=== PATIENT | female | born 1950 | race African-American/Black ===

== ENCOUNTER 2016-10-15 08:27 | Emergency (ER) | payer BC ==
[2016-10-15 08:40] VITALS: BMI 31.1
--- NOTE | 2016-10-15 08:46 | DR.CP ---
HPI - Time Seen Time seen: 08:40 - PCP Primary Care Physician: Nereyda DELVALLE - HPI Comment HPI Comment: PATIENT DENIES CAD OR HYPERLIPIDEMIA. TAKE MED FOR HYPERTENSION. NO COLD, COUGH OR CONGESTION. - Complaint Chief Complaint Doctor Comments: SUBSTERNAL LOWER CHEST PAIN AND EPIGASTRIC PAIN WITH SOB TIMES ONE WEEK.NO RADIATIONOF PAIN WHICH IS INTERMITTENT. SYMTOMS AT REST. NOT IMPROVING. Chief Complaint:: PT. C/O INTERMITTENT CHEST PAIN X 1 WEEK WHICH HAS WORSENED. PT. C/O TIGHTNESS TO CHEST AND ACROSS UPPER PART OF STOMACH WELL SOB AT REST AND ON EXERTION. PT. DENIES RADIATING PAIN. - Reviewed Nurses Notes Review: Yes - Source History Provided: Patient - Mode of Arrival Mode of Arrival: Ambulatory - Timing Onset of Chief Complaint: 10/10/16 Came on: Suddenly Pain: Present Now - Duration Duration: Intermittent Duration: Days - Location Chest Pain Radiation Location: None - Context Onset: At rest Cardiac Risk Factors: None PE Risk Factors: None History of: None Prehospital Care: None - Quality Quality: Sharp - Severity Severity: None - Modifying Factors Worsens: Nothing Impoves: Nothing - Associated Signs and Symptoms Associated Signs and Symptoms: Shortness of Breath PMH - PMH Past Medical History: Yes Past Medical History: Hypertension Past Surgical History: Yes Surgical History: , Cholecystectomy - Family History History of Family Medical Conditions: No - Social History Does patient currently use any type of tobacco product: Yes Have you used tobacco products in the last 12 months: Yes Type of Tobacco Use: Cigarettes Does any household member use tobacco: No Alcohol Use: None Do you use any recreational Drugs:: No Lives With: Spouse Lives Where: Home - infectious screening In the last 2 months have you had wt loss of >10#?: NO Have you had fever, night sweats or hemotysis?: No Have you traveled outside the country in the last 6 months?: No Isolation: Standard ROS - Review of Systems Constitutional: No Symptoms Reported Eyes: No Symptoms Reported ENTM: No Symptoms Reported Respiratoy: Short of Breath Cardiovascular: Chest Pain Genitourinary: No Symptoms Reported Neurological: No Symptoms Reported Musculoskeletal: No Symptoms Reported Integumentary: No Symptoms Reported Hematologic/Lymphatic: No Symptoms Reported Endocrine: No Symptoms Reported All Other Systems: Reviewed and Negative PE - Vitals Vitals: Temperature 97.2 F Pulse Rate [Right Brachial] 53 Pulse Rate 66 Respiratory Rate 16 Blood Pressure [Right Arm] 109/55 Blood Pressure 139/68 O2 Sat by Pulse Oximetry 100 - General Limitations: No Limitations General Appearance: Alert - Head Head Exam: Normal Inspection - Eyes Eye exam: Normal Appearance - ENT ENT Exam: Normal External Ear Exam - Chest Chest Inspection: Symmetric Chest Wall Rise - Respiratory Respiratory Exam: Normal Lung Sounds Bilat Respiratory Exam: Bilateral Clear to Auscultation - Cardiovascular Cardiovascular Exam: Regular Rate, Normal Rhythm, Normal Heart Sounds Pulse: Normal, Radial, Femoral Edema: Normal - Abdominal Exam Abdominal Exam: Normal Bowel Sounds, Soft. negative: Tenderness - Extremities Extremities Exam: Normal Inspection - Back Back Exam: Normal Inspection - Neurologic Neurological Exam: Alert, Oriented X3 - Psychiatric Psychiatric Exam: Normal Affect, Normal Mood - Skin Skin Exam: Normal Color MDM - Additional Information Additional Information Obtained From: Family - Differential Diagnosis Differential Diagnosis: Angina, Chest Wall Pain, Costochondritis, Esophageal Reflux/Spasm, Gastritis, Myocardial Infarction, Pleuritis, Pneumonia, Pneumothorax, Pulmonary Embolus Course - Treatment Treatment: SEE ORDERS - Education/Counseling Education/Counseling: Patient, Family, Education Educated On: Diagnosis ROR - Labs Reviewed Laboratory Results Reviewed?: Yes Result Diagrams: 10/15/16 09:07 10/15/16 09:07 Laboratory: WBC 10.7 X10^3/uL (3.6-10.0) H 10/15/16 09:07 RBC 4.81 X10^6/uL (3.5-5.4) 10/15/16 09:07 Hgb 13.5 g/dL (12.0-16.0) 10/15/16 09:07 Hct 39.4 % (36.0-47.0) 10/15/16 09:07 MCV 81.8 fL (80.0-100.0) 10/15/16 09:07 MCH 28.1 pg (27.0-34.0) 10/15/16 09:07 MCHC 34.3 g/dL (33.0-35.0) 10/15/16 09:07 RDW 15.3 % (11.6-16.5) 10/15/16 09:07 Plt Count 368 X10^3/uL (150.0-450.0) 10/15/16 09:07 MPV 7.6 fL (7.4-11.0) 10/15/16 09:07 Neut % 62.3 % (42.0-75.0) 10/15/16 09:07 Lymph % 29.3 % (21.0-51.0) 10/15/16 09:07 [place] % 5.4 % (0.0-13.0) 10/15/16 09:07 Eos % 1.6 % (0.9-2.9) 10/15/16 09:07 Baso % 1.4 % (0.2-1.0) H 10/15/16 09:07 Neut # 6.7 x10^3/uL (2.2-4.8) H 10/15/16 09:07 Lymph # 3.2 X10^3/uL (1.3-2.9) H 10/15/16 09:07 Hudson # 0.6 x10^3/uL (0.3-0.8) 10/15/16 09:07 Eos # 0.2 x10^3/uL (0.0-0.2) 10/15/16 09:07 Baso # 0.2 X10^3/uL (0.0-0.1) H 10/15/16 09:07 Absolute Nucleated RBC 0.0 /100WBC 10/15/16 09:07 D-Dimer < 100 ng/mL (0-400) 10/15/16 09:07 Sodium 141 mmol/L (136-145) 10/15/16 09:07 Corrected Sodium TNP 10/15/16 09:07 Potassium 4.3 mmol/L (3.5-5.1) 10/15/16 09:07 Chloride 104 mmol/L (98-107) 10/15/16 09:07 Carbon Dioxide 29.7 mmol/L (21-32) 10/15/16 09:07 BUN 9 mg/dL (7-18) 10/15/16 09:07 Creatinine 0.83 mg/dL (0.55-1.02) 10/15/16 09:07 Est GFR (MDRD) Af Amer > 60 (>60) 10/15/16 09:07 Est GFR (MDRD) Non-Af > 60 (>60) 10/15/16 09:07 Glucose 102 mg/dL (65-99) H 10/15/16 09:07 Calcium 9.4 mg/dL (8.5-10.1) 10/15/16 09:07 Corrected Calcium 10.3 mg/dL (8.5-10.1) H 10/15/16 09:07 Total Bilirubin 0.30 mg/dL (0.2-1.0) 10/15/16 09:07 AST 11 Units/L (15-37) L 10/15/16 09:07 ALT 18 Units/L (12-78) 10/15/16 09:07 Alkaline Phosphatase 94 Units/L (46-116) 10/15/16 09:07 Creatine Kinase 29 Units/L (26-192) 10/15/16 09:07 CK-MB (CK-2) < 1.0 ng/mL (0-4.0) 10/15/16 09:07 CK/CKMB % Calc 3.5 % (<4) 10/15/16 09:07 Troponin I < 0.02 ng/mL (0-1.5) 10/15/16 09:07 B-Natriuretic Peptide 19.8 pg/mL (0-79) 10/15/16 09:07 Total Protein 7.0 g/dL (6.4-8.2) 10/15/16 09:07 Albumin 2.9 g/dL (3.4-5.0) L 10/15/16 09:07 Globulin 4.1 g/dL (2.5-4.5) 10/15/16 09:07 Albumin/Globulin Ratio 0.7 Ratio (1.1-2.1) L 10/15/16 09:07 Specimen Type Clean catch urine 10/15/16 09:34 Urine Color Yellow (YELLOW) 10/15/16 09:34 Urine Appearance Clear (CLEAR) 10/15/16 09:34 Urine pH 7.0 (5.0 - 8.0) 10/15/16 09:34 Ur Specific [place] 1.005 (1.000-1.030) 10/15/16 09:34 Urine Protein Negative (NEGATIVE) 10/15/16 09:34 Urine Glucose (UA) Negative (NEGATIVE) 10/15/16 09:34 Urine Ketones Negative (NEGATIVE) 10/15/16 09:34 Urine Occult Blood Negative (NEGATIVE) 10/15/16 09:34 Urine Nitrite Negative (NEGATIVE) 10/15/16 09:34 Urine Bilirubin Negative (NEGATIVE) 10/15/16 09:34 Urine Urobilinogen Normal (NORMAL) 10/15/16 09:34 Ur Leukocyte Esterase Negative (NEGATIVE) 10/15/16 09:34 Urine RBC 0-2 /HPF (NEGATIVE) 10/15/16 09:34 Urine WBC 0-2 /HPF (NEGATIVE) 10/15/16 09:34 Ur Squamous Epith Cells Negative /HPF (NEGATIVE) 10/15/16 09:34 Urine Bacteria Trace /HPF (NEGATIVE) 10/15/16 09:34 Ur Culture Indicated? No/not indicated 10/15/16 09:34 H. pylori IgG Antibody Positive (NEGATIVE) A 10/15/16 09:07 - XRAY XRAY Interpreted by: Radiologist XRAY Findings: REPORT DISCUSS WITH PATIENT. - EKG Rhythm: NSR (EKG NOTED) - Diagnosis Discharge Problem: Helicobacter pylori ab+, Helicobacter positive gastritis Chest pain Qualifiers: Chest pain type: unspecified Qualified Code(s): R07.9 - Chest pain, unspecified - Discharge Plan Disposition: 01 HOME, SELF-CARE Condition: Stable Prescriptions: Lansoprazole [Prevacid] 30 mg PO DAILY #30 cap - Follow ups/Referrals Follow ups/Referrals: ROCAEL DELVALLE [Primary Care Provider] - 3 days - Instructions Instructions: Gastritis, Adult, [id number], Helicobacter Pylori Antibodies Test, Chest Pain Observation Additional Instructions: RETURN TO ED IF WORSE.
[2016-10-15] MEDS ORDERED: ASPIRIN 81 MG CHEWTAB PO ONE (08:47)
[2016-10-15] MEDS ORDERED: ASPIRIN 81 MG CHEWTAB ONE (08:48)
[2016-10-15 09:18] LABS: BASOPHILS # (AUTO) 0.2 X10^3/uL (0.0-0.1); BASOPHILS % (AUTO) 1.4 % (0.2-1.0); EOSINOPHILS # (AUTO) 0.2 x10^3/uL (0.0-0.2); EOSINOPHILS % (AUTO) 1.6 % (0.9-2.9); HEMATOCRIT 39.4 % (36.0-47.0); HEMOGLOBIN 13.5 g/dL (12.0-16.0); LYMPHOCYTES # (AUTO) 3.2 X10^3/uL (1.3-2.9); LYMPHOCYTES % (AUTO) 29.3 % (21.0-51.0); MEAN CORPUSCULAR HEMOGLOBIN 28.1 pg (27.0-34.0); MEAN CORPUSCULAR HGB CONC 34.3 g/dL (33.0-35.0); MEAN CORPUSCULAR VOLUME 81.8 fL (80.0-100.0); MEAN PLATELET VOLUME 7.6 fL (7.4-11.0); MONOCYTES # (AUTO) 0.6 x10^3/uL (0.3-0.8); MONOCYTES % (AUTO) 5.4 % (0.0-13.0); NEUTROPHILS # (AUTO) 6.7 x10^3/uL (2.2-4.8); NEUTROPHILS % (AUTO) 62.3 % (42.0-75.0); PLATELET COUNT 368 X10^3/uL (150.0-450.0); RED BLOOD COUNT 4.81 X10^6/uL (3.5-5.4); RED CELL DISTRIBUTION WIDTH 15.3 % (11.6-16.5); WHITE BLOOD COUNT 10.7 X10^3/uL (3.6-10.0)
[2016-10-15 09:38] LABS: BLOOD UREA NITROGEN 9 mg/dL (7-18); CALCIUM 9.4 mg/dL (8.5-10.1); CARBON DIOXIDE 29.7 mmol/L (21-32); CHLORIDE 104 mmol/L (98-107); CREATININE 0.83 mg/dL (0.55-1.02); GLUCOSE 102 mg/dL (65-99); SODIUM 141 mmol/L (136-145); TROPONIN I < 0.02 ng/mL (0-1.5); eGFR BLACK RACES > 60 (>60); eGFR NON BLACK RACES > 60 (>60)
[2016-10-15 09:39] LABS: BILIRUBIN,URINE NEGATIVE (NEGATIVE); BLOOD/HEMOGLOBIN,URINE NEGATIVE (NEGATIVE); GLUCOSE, URINE NEGATIVE (NEGATIVE); KETONES,URINE NEGATIVE (NEGATIVE); LEUKOCYTE ESTERASE ,URINE NEGATIVE (NEGATIVE); NITRITES,URINE NEGATIVE (NEGATIVE); PROTEIN,URINE NEGATIVE (NEGATIVE); UROBILINOGEN,URINE NORMAL (NORMAL)
[2016-10-15 09:43] LABS: ALANINE AMINOTRANSFERASE 18 Units/L (12-78); ALBUMIN 2.9 g/dL (3.4-5.0); ALKALINE PHOSPHATASE 94 Units/L (46-116); ASPARTATE AMINO TRANSFERASE 11 Units/L (15-37); CKMB % 3.5 % (<4); COR CA(FOR HYPOALB) 10.3 mg/dL (8.5-10.1); CREATINE KINASE 29 Units/L (26-192); CREATINE KINASE MB < 1.0 ng/mL (0-4.0)
[2016-10-15 09:45] LABS: APPEARANCE,URINE CLEAR (CLEAR); BACTERIA,URINE TRACE /HPF (NEGATIVE); COLOR,URINE YELLOW (YELLOW); RBC,URINE 0-2 /HPF (NEGATIVE); SQUAMOUS EPITHELIAL CELL,UR NEGATIVE /HPF (NEGATIVE)
[2016-10-15 09:53] LABS: D DIMER < 100 ng/mL (0-400)
[2016-10-15 10:23] VITALS: BP 109/55
[2016-10-15] MEDS ORDERED: PEPCID TAB 20 MG PO ONE (10:24)
[2016-10-15] MEDS ORDERED: PEPCID TAB 20 MG ONE (10:31)
--- NOTE | 2016-10-15 11:32 | RAD ---
History: Chest pain Study: Portable chest Findings: Portable AP erect chest labeled 9:21 a.m. Shows the cardiac silhouette to be within normal limits. The lungs are without acute infiltrate. No pleural effusion is seen nor acute osseous abnormality no kameron Impression: . No acute radiographic chest findings. Reported By:
== END 2016-10-15 10:39 | disposition home or self-care (01) ==
LOC: ER 08:39
DX: R07.89 Other chest pain (principal); B96.81 Helicobacter pylori [H. pylori] as the cause of diseases classified elsewhere
CPT/HCPCS: 36415; 71010; 80053; 81001; 82550; 82553; 83880; 84484; 85025; 85378; 86677; 93005; 93010; 99283

== ENCOUNTER → 2017-08-16 | Outpatient (CLI) | payer BC ==
--- NOTE | 2017-08-17 08:14 | US ---
HISTORY: Multinodular goiter Study: Thyroid sonogram Comparison: 08/03/2012 Technique: Multiple grayscale sonographic images were obtained. Findings: The right lobe measured 5.4 x 3.9 x 3.1 cm, the isthmus 1.3 cm, and the left lobe 4.9 x 1.9 x 2.1 cm. Once again noted in the right thyroid lobe is a 2.5 cm nodule stable when compared with the prior ex amination. In the left thyroid lobe there are multiple nodules the largest of which measures 1.99 cm not significantly changed from the prior examination. By history the patient has had fine-needle aspi ration. IMPRESSION: Findings most consistent with a multinodular goiter not significantly changed from the prior examinat ion Reported By:
== END ==
LOC: RAD 15:47
PROVIDERS: ATTEND Nurse Practitioner Family
DX: E04.2 Nontoxic multinodular goiter (principal)
CPT/HCPCS: 76536